=== PATIENT | female | born 1965 | race Caucasian/White ===

== ENCOUNTER 2023-06-25 09:10 | Emergency (ER) | payer OTHER, SELFPAY ==
[2023-06-25 09:10] VITALS: BP 145/93; PULSE 67; RESP 18; TEMP 36.7; O2SAT 96; BMI 29.2
[2023-06-25 09:27] LABS: UTC Strep Screen (Rapid) Positive (Negative)
--- NOTE | 2023-06-25 09:28 | EXP.UTC ---
Discharge Plan Disposition Patient Disposition: Home, Self-Care Condition: Good Prescriptions Prescriptions: New azithromycin [Zithromax] 250 mg tablet 250 mg PO UD DOSE PK Qty: 6 0RF Rx Instructions: Take two (2) tablets today, then one (1) tablet days #2 thru #5 methylprednisolone 4 mg Tablets,Dose Pack 4 mg PO DIRECTED Qty: 21 0RF euneearmbhwiixs-bqqwuihvz-QC [Bromfed DM] 2-30-10 mg/5 mL Syrup 5 ml PO Q6H PRN (Reason: Cough) Qty: 240 0RF No Action methylprednisolone acetate 80 mg/mL suspension 80 mg IM ONCE Qty: 1 0RF hydrocortisone [Anusol-HC] 2.5 % cream with perineal applicator 1 applic WI QD-BID PRN (Reason: hemorrhoids) Qty: 30 2RF Referrals Follow up/Referrals: Mary Bergman APRN [Primary Care Provider] - See instructions Activity Restrictions/Add. Instructions Additional Instructions/Restrictions: Drink plenty of fluids. Take tylenol or ibuprofen for pain or fever. Take the medications as directed. Follow up with your regular doctor. GO TO THE ER FOR ANY WORSENING SYMPTOMS Don't take the bromfed-dm cough syrup for more than a couple of days. It can cause elevated blood pressure if taken for longer. Clinical Impressions Clinical Impression: Strep throat Instructions Patient Instructions: Strep Throat, DI for Strep Throat Discharge ED Provider: Garrick Lewis [facility] [place] HPI General Stated complaint: POSSIBLE STREP Mode of Arrival: Ambulatory Source of Information: Patient Limitations: No Limitations Time Seen by Provider: 06/25/23 09:28 Description of Symptoms (Recalled from Triage Doc. by RN): c/o sore throat and headache since last night HEENT Symptoms (Recalled from RN notes): Yes Resp Symptoms (Recalled from RN notes): No Skin Symptoms (Recalled from RN notes): No MS Symptoms (Recalled from RN notes): No Functional Status (Recalled from RN notes): wnl History of Present Illness Provider Complaint: She c/o sore throat for the past 2 days. She has been exposed to strep throat by her grandson. She also has a cough and request bromfed cough syrup. Related Data Previous Rx's Medication Instructions Recorded hydrocortisone 2.5 % topical cream 1 applic WI QD-BID PRN hemorrhoids 08/15/21 with perineal applicator #30 grams (Anusol-HC) azithromycin 250 mg tablet 250 mg PO UD DOSE PK #6 tabs 06/25/23 (Zithromax) nolbekyxmbaqfqw-btvkqlukmxflwhw-TR 5 ml PO Q6H PRN Cough #240 mL 06/25/23 2 mg-30 mg-10 mg/5 mL oral syrup (Bromfed DM) methylprednisolone 4 mg tablets in 4 mg PO DIRECTED #21 tabs 06/25/23 a dose pack Allergies Allergy/AdvReac Type Severity Reaction Status Date / Time No Known Allergies Allergy Verified 08/15/21 09:42 Worker's Comp Is this a Worker's Comp case?: No [facility] Disclaimer: The information contained in this section may have been updated after the patient was seen, as this information can be updated by other users. Social History Smoking Status: Never smoker alcohol intake: never current occupational status: employed Travel in the last 8 weeks: None household members: family ROS Obtained: Yes All systems reviewed & no additional complaints except as documented Constitutional Constitutional: Reports chills and Reports fever(s) Eyes Eyes: Denies eye discharge ENT Ears, Nose, Mouth, and Throat: Reports as per HPI Cardiovascular Cardiovascular: Denies chest pain Respiratory Respiratory: Denies chest congestion and Reports cough Gastrointestinal Gastrointestingal: Reports nausea; Denies abdominal pain, constipation, cramping, diarrhea or vomiting Musculoskeletal Musculoskeletal: Denies arthralgias Integumentary/Breasts Skin/Breast: Denies rash Neurologic Neurologic: Denies paresthesias Physical Exam General General appearance: alert and in no apparent distress Head Head exam: atraumatic, normocephalic and normal inspection Eye Eye exam: Present normal appearance, PERRL and EOM
[2023-06-25 09:39] VITALS: BP 145/93; PULSE 67; RESP 18; TEMP 36.6; O2SAT 96
== END 2023-06-25 09:39 | disposition home or self-care (01) ==
PROVIDERS: Emergency Provider Nurse Practitioner Family; PCP Nurse Practitioner Family
DX: J02.0 Streptococcal pharyngitis (principal); R07.0 Pain in throat; R05.9 Cough, unspecified; R51.9 Headache, unspecified
CPT/HCPCS: 87880; 99204; 99212; G0463

== ENCOUNTER 2023-11-16 09:42 | Emergency (ER) | payer BC, SELFPAY ==
[2023-11-16 09:55] VITALS: BP 161/81; PULSE 67; RESP 21; TEMP 36.7; O2SAT 97; BMI 28.9
--- NOTE | 2023-11-16 10:14 | EXP.UTC ---
Discharge Plan Disposition Patient Disposition: Home, Self-Care Condition: Good Prescriptions Prescriptions: New azithromycin [Zithromax Z-Deshawn] 250 mg tablet See Rx Instructions .ROUTE .COMPLEX 5 Days Qty: 6 0RF Rx Instructions: For 250 mg dose pack: take 500 mg today (day 1), then 250 mg for 4 days (days 2-5) benzonatate 100 mg capsule 100 mg PO TID PRN (Reason: cough) Qty: 30 0RF methylprednisolone [Medrol (Deshawn)] 4 mg tablets,dose pack See Rx Instructions .Route .COMPLEX 6 Days Qty: 21 0RF Rx Instructions: taper pack; Referrals Follow up/Referrals: Mary Bergman APRN [Primary Care Provider] - See instructions Activity Restrictions/Add. Instructions Additional Instructions/Restrictions: *Monitor Temp, Over the counter Motrin or Tylenol as directed/as needed Tylenol every 4 hours and Motrin every 6 hours (as long as your family doctor has told you that you can take it) for fever or pain. and straight to ER if unable to lower temp less than 101.0 after medication given *Warm salt water gargles may help to soothe the throat *Throat Lozenges? *Warm fluids like tea with honey may help to soothe the throat? *Sleep elevated *Humidifier/Vaporizer Your throat swab was sent for culture. Those results are typically sent to your primary care. Be sure to follow up in 2-3 days with your family doctor/primary care physician if no improvement so they can review those result and treat if necessary. If you don?t have a primary care doctor, I recommend you get one but in the mean time, you will have to return to a walk in clinic Follow up IMMEDIATELY for new or worsening symptoms or no Noticeable improvement over the next 48-72 hours. 911 for difficulty breathing or swallowing Clinical Impressions Clinical Impression: Pharyngitis Instructions Patient Instructions: Sore Throat, DI for Sinusitis Discharge ED Provider: Consuelo Ureña [facility] [place] HPI General Stated complaint: sore throat, headache, congestion Mode of Arrival: Ambulatory Source of Information: Patient Limitations: No Limitations Time Seen by Provider: 11/16/23 10:14 Description of Symptoms (Recalled from Triage Doc. by RN): PATIENT C/O SORE THROAT, SCRATCHY EARS, NASAL CONGESTION, AND FEELING TIRED SINCE YESTERDAY HEENT Symptoms (Recalled from RN notes): Yes Resp Symptoms (Recalled from RN notes): No Skin Symptoms (Recalled from RN notes): No MS Symptoms (Recalled from RN notes): No Functional Status (Recalled from RN notes): WNL History of Present Illness Provider Complaint: Patient states that she has been around grandchild that has strep throat, states that she has been having sinus issues and congestion and yesterday her mucous turned yellowish in color and thick, having sore scratchy throat, drainage in the back of her throat and feeling achy and tired so today she came in to get checked Related Data Previous Rx's Medication Instructions Recorded azithromycin 250 mg tablet See Rx Instructions PO .COMPLEX 5 11/16/23 (Zithromax Z-Deshawn) days #6 tabs benzonatate 100 mg capsule 100 mg PO TID PRN cough #30 caps 11/16/23 methylprednisolone 4 mg tablets in See Rx Instructions .Route 11/16/23 a dose pack (Medrol (Deshawn)) .COMPLEX 6 days #21 tabs Allergies Allergy/AdvReac Type Severity Reaction Status Date / Time amoxicillin Allergy Verified 11/16/23 10:08 Sulfa (Sulfonamide Allergy Verified 11/16/23 10:08 Antibiotics) Worker's Comp Is this a Worker's Comp case?: No [facility] Disclaimer: The information contained in this section may have been updated after the patient was seen, as this information can be updated by other users. Medical History (Updated 11/16/23 @ 10:26 by Consuelo Ureña APRN) Anxiety Urinary tract infection Surgical History (Updated 11/16/23 @ 10:09 by Esther Everett RN) History of section Social History Smoking Status: Never smoker alcohol intake: never current occupational status: employed Travel in the last 8 weeks: None household members: family ROS Obtained: Yes All systems reviewed & no additional complaints except as documented and Yes Systems reviewed as appropriate & no additional complaints except as documented Constitutional Constitutional: Reports system reviewed and no additional complaints, except as documented and Reports as per HPI ENT Ears, Nose, Mouth, and Throat: Reports system reviewed and no additional complaints, except as documented, Reports as per HPI, Reports otalgia, Reports nasal congestion, Reports sinus pressure and Reports sore throat Cardiovascular Cardiovascular: Reports system reviewed and no additional complaints, except as documented and Reports as per HPI Respiratory Respiratory: Reports system reviewed and no additional complaints, except as documented and Reports as per HPI Gastrointestinal Gastrointestingal: Reports system reviewed and no additional complaints, except as documented and as per HPI Physical Exam General General appearance: alert and in no apparent distress ENT ENT exam: Present mucous membranes moist Expanded ENT Exam Nose exam: Present other (report thick yellowish colored mucous) Throat exam: Present other (pharyngeal erythema noted with PND) Respiratory Respiratory exam: Present normal lung sounds bilaterally; Absent respiratory distress or wheezes Cardiovascular Cardiovascular exam: Present regular rate, normal rhythm and normal heart sounds Neurological Exam Neurological exam: Present alert, oriented X3 and normal gait Medical Decision Making Louie Inquiry Pt receiving controlled substance: No Louie was queried for this patient: No Vital Signs: 11/16/23 09:55 Temperature 98.1 F Temperature Source Oral Pulse Rate [Right Brachial] 67 Respiratory Rate 21 Blood Pressure [Right Arm] 161/81 H Blood Pressure Mean [Right Arm] 107 Blood Pressure Source [Right Arm] Automatic Cuff Blood Pressure Position [Right Arm] Sitting 02 Sat by Pulse Oximetry 97 Oxygen Delivery Method Room Air Lab Data Lab results reviewed: Yes I reviewed the patient's lab results.
[2023-11-16 10:23] LABS: UTC Strep Screen (Rapid) Negative (Negative)
[2023-11-16 10:37] VITALS: BP 161/81; PULSE 67; RESP 21; TEMP 36.7; O2SAT 97
== END 2023-11-16 10:42 | disposition home or self-care (01) ==
PROVIDERS: Emergency Provider Nurse Practitioner; PCP Nurse Practitioner Family
DX: J02.9 Acute pharyngitis, unspecified (principal); R51.9 Headache, unspecified; R09.81 Nasal congestion; R53.83 Other fatigue; F41.9 Anxiety disorder, unspecified
CPT/HCPCS: 87880; 99212; 99214; G0463

== ENCOUNTER 2024-06-05 13:25 | Emergency (ER) | payer BC, SELFPAY ==
[2024-06-05 14:09] VITALS: BP 144/82; PULSE 61; RESP 20; TEMP 36.8; O2SAT 98; BMI 29.2
[2024-06-05 14:19] LABS: UTC Strep Screen (Rapid) Negative (Negative)
--- NOTE | 2024-06-05 14:55 | ED_ITS ---
Discharge Plan Disposition Patient Disposition: Home, Self-Care Condition: Good Prescriptions Prescriptions: New Stahist AD 25-60 mg tablet 1 tab PO .6-8 hours MDD 3 tabs Qty: 30 0RF cefdinir 300 mg capsule 300 mg PO BID 10 Days Qty: 20 0RF Referrals Follow up/Referrals: Mary Bergman APRN [Primary Care Provider] - See instructions Activity Restrictions/Add. Instructions Additional Instructions/Restrictions: Take medication as prescribed. Increase fluids and rest. If symptoms persist or worsen, return to clinic/PCP. Clinical Impressions Clinical Impression: Pharyngitis Qualifiers: Pharyngitis/tonsillitis etiology: unspecified etiology Qualified Code(s): J02.9 - Acute pharyngitis, unspecified Sinusitis, acute maxillary Qualifiers: Recurrence: non-recurrent Qualified Code(s): J01.00 - Acute maxillary sinusitis, unspecified Instructions Patient Instructions: DI for Sinusitis, DI for Pharyngitis/Tonsillopharyngitis -- Adult Print Language Print Language: Senegalese Discharge ED Provider: Marlys Villaseñor [facility] General Stated complaint: sore throat Mode of Arrival: Ambulatory Source of Information: Patient Time Seen by Provider: 06/05/24 14:55 Description of Symptoms (Recalled from Triage Doc. by RN): SORE THROAT, TIGHTNESS FEELING AND TONGUE BURNING HEENT Symptoms (Recalled from RN notes): Yes Resp Symptoms (Recalled from RN notes): No Skin Symptoms (Recalled from RN notes): No MS Symptoms (Recalled from RN notes): No Functional Status (Recalled from RN notes): WNL History of Present Illness Provider Complaint: Pt reports that she has had clear sinus drainage with a lot of sinus pressure, sore burning throat and tongue. Symptoms started 2 days ago. Granddaughter is sick as well. Related Data Previous Rx's ?Medication ?Instructions ?Recorded cefdinir 300 mg capsule 300 mg PO BID 10 days #20 caps 06/05/24 chlorcyclizine-pseudoephedrine 25 1 tab PO .6-8 hours #30 tabs 06/05/24 mg-60 mg tablet (Stahist AD) Allergies Allergy/AdvReac Type Severity Reaction Status Date / Time amoxicillin Allergy Verified 11/16/23 10:08 Sulfa (Sulfonamide Allergy Verified 11/16/23 10:08 Antibiotics) Worker's Comp Is this a Worker's Comp case?: No [facility] Disclaimer: The information contained in this section may have been updated after the patient was seen, as this information can be updated by other users. Medical History (Updated 06/05/24 @ 15:10 by Marlys Villaseñor APRN) Anxiety Urinary tract infection Surgical History (Updated 11/16/23 @ 10:09 by Esther Everett RN) History of section Social History Smoking Status: Never smoker alcohol intake: never current occupational status: employed Travel in the last 8 weeks: None household members: family ROS Obtained: Yes All systems reviewed & no additional complaints except as documented Constitutional Constitutional: Reports system reviewed and no additional complaints, except as documented and Reports malaise Eyes Eyes: Reports system reviewed and no additional complaints, except as documented ENT Ears, Nose, Mouth, and Throat: Reports system reviewed and no additional complaints, except as documented, Reports nasal discharge, Reports odynophagia, Reports sinus pressure and Reports sore throat Cardiovascular Cardiovascular: Reports system reviewed and no additional complaints, except as documented Respiratory Respiratory: Reports system reviewed and no additional complaints, except as documented Gastrointestinal Gastrointestingal: Reports system reviewed and no additional complaints, except as documented and odynophagia Genitourinary Female Genitourinary: Reports system reviewed and no additional complaints, except as documented Musculoskeletal Musculoskeletal: Reports system reviewed and no additional complaints, except as documented Integumentary/Breasts Skin/Breast: Reports system reviewed and no additional complaints, except as documented Neurologic Neurologic: Reports system reviewed and no additional complaints, except as documented Endocrine Endocrine: Reports system reviewed and no additional complaints, except as documented Hematologic/Lymphatic Henatologic/Lymphatic: Reports system reviewed and no additional complaints, except as documented Allergic/Immunologic Allergic/Immunologic: Reports system reviewed and no additional complaints, except as documented Physical Exam General General appearance: alert and in no apparent distress Head Head exam: atraumatic and normocephalic Eye Eye exam: Present normal appearance ENT ENT exam: Present mucous membranes moist Expanded ENT Exam External ear exam: Present normal external inspection Nasal speculum exam: Bilateral: other (clear drainage) Mouth exam: Present normal external inspection Teeth exam: Present normal inspection Throat exam: Present tonsillar erythema Neck Neck exam: Present normal inspection Chest Chest inspection: Present normal inspection and symmetric chest wall rise Respiratory Respiratory exam: Present normal lung sounds bilaterally Cardiovascular Cardiovascular exam: Present regular rate and normal rhythm Abdominal Exam Abdominal exam: Present soft and normal bowel sounds Extremities Exam Extremities exam: Present normal inspection Back Exam Back exam: Present normal inspection Neurological Exam Neurological exam: Present alert and oriented X3 Psychiatric Psychiatric exam: Present normal affect and normal mood Skin Skin exam: Present warm, dry and intact Lymphatic Lymphatic Findings: no adenopathy Medical Decision Making Medical Records Screening: Per USPSTF and CDC recommendations, given the prevalence of disease in our region, it is our hospital?s policy to screen for HIV and viral Hepatitis for all patients aged 18 and over and those with ongoing risk factors. Louie Inquiry Pt receiving controlled substance: No Louie was queried for this patient: No Vital Signs: 06/05/24 14:09 Temperature 98.3 F Temperature Source Oral Pulse Rate [Left Radial] 61 Respiratory Rate 20 Blood Pressure [Left Arm] 144/82 H Blood Pressure Mean [Left Arm] 102 02 Sat by Pulse Oximetry 98 Lab Data Lab Results 06/05/24 14:12: Strep Scn Rapid Clinic Negative Orders (Tests/Meds): ORDERS Category Date Time Status Strep Screen Confirmation Stat Micro 06/05/24 14:12 Received
[2024-06-05 15:16] VITALS: BP 144/82; PULSE 61; RESP 20; TEMP 36.8
== END 2024-06-05 15:17 | disposition home or self-care (01) ==
PROVIDERS: Emergency Provider Nurse Practitioner Family; PCP Nurse Practitioner Family
DX: J02.9 Acute pharyngitis, unspecified (principal); J01.01 Acute recurrent maxillary sinusitis
CPT/HCPCS: 87880; 99213; G0381

== ENCOUNTER 2025-06-02 09:31 | Day surgery (SDC) | payer BC, SELFPAY ==
[2025-05-27 15:22] VITALS: BMI 27.4
--- NOTE | 2025-06-01 07:15 | EXP.HP ---
History of Present Illness *Admission Date: 06/02/25 *History of present illness: Mrs. Gutierres is a 60-year-old female who is here for diagnostic colonoscopy. The patient has had frequent anorectal bleeding. The examination is deemed medically necessary for diagnostic colonoscopy. The patient has been seen, interviewed and examined prior to the procedure by both myself and the anesthesia provider. [facility] Disclaimer: The information contained in this section may have been updated after the patient was seen, as this information can be updated by other users. Medical History Carpal tunnel syndrome Plantar fasciitis Anxiety Urinary tract infection Surgical History History of section Family History Other No significant family history Social History (Updated 06/02/25 @ 10:24 by Ciara Vaughan CRNA) Smoking Status: Never smoker alcohol intake: never substance use type: unknown current occupational status: employed Travel in the last 8 weeks?: None household members: family caffeine: Yes Have you lived/traveled outside [place] in past 30 days?: No Contact w/someone who lives/traveled outside US past 30 days?: No Exposure to someone with infectious disease in past 14 days?: No Do you have a fever (greater than 100.4 F or 38 C)?: No Have you tested positive for COVID-19?: No Exposed to someone with COVID-19 in past 14 days?: No Do you have a sore throat?: No Do you have a cough?: No Do you have any weakness?: No Are you experiencing any nausea/vomitting?: No Do you have any diarrhea?: No Are you experiencing any unusual bleeding?: No Do you have any muscle aches/pain?: No Do you have any abdominal pain?: No Are you experiencing loss of taste or smell?: No Other Medical History Have you received the Flu Vaccine for this season: No Have you received the Pneumonia Vaccine: No Review of Systems Review of Systems Review of systems (narrative): Negative *Cardiovascular Comments: Negative *Gastrointestinal Comments: Negative *Genitourinary Comments: Negative *Musculoskeletal Comments: Negative *Neurologic Comments: Negative Meds Home Medications and Allergies Home Medications ?Medication ?Instructions ?Recorded ?Confirmed ?Type sodium sul 1.479 gram-potas ch See Rx Instructions PO PER PKG DIR 05/19/25 Rx 0.188 gram-magnes sul 0.225 gram colonscopy #24 tabs tablet (Sutab) diclofenac potassium 25 mg tablet 75 mg PO BID 05/27/25 06/02/25 History fluticasone propionate 50 1 spray intranasal DAILY 05/27/25 06/02/25 History mcg/actuation nasal spray,suspension (Flonase Allergy Relief) fexofenadine 60 mg-pseudoephedrine 1 tab PO Q12H PRN . 06/02/25 06/02/25 History ER 120 mg tablet,ext.release,12 hr (Sharonda-D 12 Hour) New Prescriptions to Start Prescriptions: Allergies Allergy/AdvReac Type Severity Reaction Status Date / Time amoxicillin Allergy Other Verified 06/02/25 09:55 Sulfa (Sulfonamide Allergy Unknown Verified 06/02/25 09:55 Antibiotics) allergy reaction Exam *Routine HEENT Exam Head: Present normocephalic Eye: Present EOMI and PERRL ENT: Present mucous membranes moist *Routine Neck Exam Neck: Present supple *Routine Respiratory Exam Respiratory: Present CTA bilaterally *Routine Cardiovascular Exam Cardiovascular: Present RRR *Routine Abdominal Exam Abdominal: Present soft and normoactive bowel sounds; Absent tenderness *Routine Rectal Exam Rectal:: deferred *Routine Genitalia Exam Genitalia:: deferred *Routine Extremities Exam Extremities: Absent cyanosis, clubbing or edema *Routine Skin Exam Skin: Present warm; Absent rash *Routine Neurological Exam Neurological: Present alert and oriented X3 Assessment and Plan *Assessment and plan (1) Anorectal hemorrhage: Status: Acute Category: Medical Code(s): K62.5 - Hemorrhage of anus and rectum Plan A/P: 1. Anorectal bleeding is the preprocedural diagnosis. The patient will be anesthetized/sedated using MAC sedation. The patient has been seen and examined. Cardiac and lung assessment prior to the examination is stable. Proceed with planned diagnostic colonoscopy.
--- NOTE | 2025-06-02 06:59 | HMH.PROCNOTE ---
[facility] Procedure Note Date: 06/02/25 Time: 11:31 Procedure Note:: Colonoscopy Procedure Report: Colonoscopy with cold snare polypectomy Endoscopist: Bong Posada II, MD Referring physician: JAYDEN Walls Date of Procedure: June 02, 2025 Equipment: Olympus [id number] adult colonoscope Sedation: MAC sedation Indication: Mrs. Gutierres is a 60-year-old female who is here for diagnostic colonoscopy. The patient has had some frequent anorectal bleeding which she states is related to hemorrhoids and she has had hemorrhoids since childbirth years ago. She has had thrombosed hemorrhoids in the past. She reports some hemorrhoidal prolapse. The patient reports no abdominal pain, weight loss, change in her bowel habits or family history of colon cancer. She does state that her last colonoscopy was 22 years ago (Jack Guallpa MD). The examination is deemed medically necessary for diagnostic colonoscopy. Procedure: Prior to the procedure, a history and physical exam was performed, and patient's medications and allergies were reviewed. The risks, benefits and alternatives of the sedation and procedure were discussed with the patient. All questions were answered and informed consent was obtained. The patient was brought to the procedure room. Patient identification and proposed procedure were verified by the physician and the nurse. The patient was placed in a left lateral decubitus position and the scope was passed under direct vision. Throughout the procedure, the patient's blood pressure, pulse, and oxygen saturations were monitored continuously. The colonoscopy was accomplished without difficulty. The patient tolerated the procedure well. Findings: On digital rectal examination there was normal to increased rectal tone. There were external hemorrhoidal tags and an anterior midline healing anal fissure. The colonoscope was introduced through the anal canal to the rectum and advanced to the cecum. The ileocecal valve and appendiceal orifice were identified. The scope was advanced a short distance into the ileum which appeared grossly normal. The scope was then withdrawn into the colon. The cecum, ascending and transverse colon and mucosa were grossly normal. There was a diminutive 2 to 3 mm polyp in the transverse colon removed via cold snare polypectomy. There were scattered diverticuli throughout the descending and sigmoid colon (LEFT colon). The rectum itself was normal. Upon retroflexion within the rectum there were grade 1 internal hemorrhoids. The preparation was excellent throughout with Rover Preparation Score of 9. The cecal time was 12 minutes. Impression: 1. Diminutive 2 to 3 mm transverse colon polyp 2. Left-sided diverticulosis 3. Anterior midline anal fissure 4. Grade 1 internal hemorrhoids with small external tags Plan: I will follow-up the polyp histology and recommend repeat screening/surveillance colonoscopy again in 7 to 10 years. I would encourage psyllium bulking fiber supplementation on a long-term daily maintenance basis.
[2025-06-02 09:53] VITALS: BP 150/77; PULSE 74; RESP 18; TEMP 36.3; O2SAT 95
[2025-06-02] MEDS: LACTATED RINGERS 1000ML 1,000 ML 50 ML IV (10:06)
--- NOTE | 2025-06-02 10:22 | P.PNANES_ITS ---
[facility] Disclaimer: The information contained in this section may have been updated after the patient was seen, as this information can be updated by other users. Medical History Carpal tunnel syndrome Plantar fasciitis Anxiety Urinary tract infection Surgical History History of section Family History Other No significant family history Social History Smoking Status: Never smoker alcohol intake: never substance use type: unknown current occupational status: employed Travel in the last 8 weeks?: None household members: family caffeine: Yes [facility] Anesthesia Checklist Patient Identification Patient Identification: Arm Band and Verbal (Name & ) Structural Data Admitted From: Home Planned Operative Procedure/s: colonscopy Consent for Planned Operative Procedure(s) Verified: Yes Verified Documents: Surgical Consent and History and Physical NPO Status Verified Time NPO: 00:00 Additional verifications Anesthesia Reactions: No Previous Colonoscopy: Yes Airway Assessment Mallampati Score:: Class II C-Spine Mobility Assessed: Yes TMJ Mobility Assessed: Yes Dentition: Good Dentition Neurological Assessment Level of Consciousness: Awake, Alert and Appropriate Hx Seizures: No Numbness or tingling in extremities: No Anesthesia Plan Anesthesia Risk discussed: Yes Anesthesia Plan: Verified ASA Class: II Anesthesia Type: MAC
[2025-06-02 11:34] VITALS: BP 113/79; PULSE 67; RESP 18; TEMP 36.1; O2SAT 97
[2025-06-02 11:44] VITALS: BP 120/75; PULSE 60; O2SAT 97
[2025-06-02 11:54] VITALS: BP 125/71; PULSE 58; O2SAT 98
[2025-06-02 12:04] VITALS: BP 110/73; PULSE 55; O2SAT 97
== END 2025-06-02 12:04 | disposition home or self-care (01) ==
PROVIDERS: PCP Nurse Practitioner Family; Visit Provider Internal Medicine Gastroenterology
PROC: 0DJD8ZZ Inspection of Lower Intestinal Tract, Via Natural or Artificial Opening Endoscopic (ICD-10-PCS; CPT 45378; principal; 2025-06-02 11:00)
DX: K63.5 Polyp of colon (principal); K60.2 Anal fissure, unspecified; K64.4 Residual hemorrhoidal skin tags; K57.30 Diverticulosis of large intestine without perforation or abscess without bleeding; K64.0 First degree hemorrhoids; K62.5 Hemorrhage of anus and rectum; Z88.2 Allergy status to sulfonamides
CPT/HCPCS: 45385; J2003; J2704; J7120